=== PATIENT | male | born 1995 | race African-American/Black ===

== ENCOUNTER 2017-12-29 21:55 | Emergency (ER) | payer OTHER ==
[2017-12-29 22:05] VITALS: BP 129/96
--- NOTE | 2017-12-29 22:34 | ED Physician Documentation ---
PD HPI LOWER EXT INJURY - Stated complaint Stated Complaint: L ANKLE INJ - Chief complaint Chief Complaint: Trauma Ext - History obtained from History obtained from: Patient - History of Present Illness PD HPI LOW EXT INJURY LOCATION: Left, Ankle Type of injury: Twist Where injury occurred: Park Timing - onset: Today Timing - details: Abrupt onset Worsened by: Moving Associated symptoms: Tingling, Swelling - Additional information Additional information: Twisted playing football today, cannot walk or bear weight. Review of Systems Skin: reports: Reviewed and negative Musculoskeletal: reports: Joint swelling, Pain with weight bearing. denies: Neck pain, Back pain Neurologic: reports: Reviewed and negative PD PAST MEDICAL HISTORY - Past Medical History Past Medical History: No - Past Surgical History Past Surgical History: No - Present Medications Home Medications: Ambulatory Orders Medication Instructions Recorded Confirmed No Known Home Medications 12/29/17 12/29/17 - Allergies Allergies/Adverse Reactions: Allergies Allergy/AdvReac Type Severity Reaction Status Date / Time No Known Drug Allergies Allergy Verified 12/29/17 22:06 - Social History Does the pt smoke?: No Smoking Status: Never smoker Does the pt drink ETOH?: Yes Does the pt have substance abuse?: No - Immunizations Immunizations are current?: Yes PD ED PE NORMAL - Vitals Vital signs reviewed: Yes - General General: Alert and oriented X 3, No acute distress - Neck Neck: Supple, no meningeal sign, No bony TTP - Extremities Extremities: Other (A lot of soft tissue swelling over the lateral malleolus without too much in the way of tenderness there. No proximal fibular, talar dome, or medial malleolar tenderness or foot tenderness.) - Neuro Neuro: Alert and oriented X 3, Normal speech Results - Vitals Vitals: Vital Signs - 24 hr 12/29/17 22:03 Heart Rate 88 Respiratory 18 Rate Blood Pressure 129/96 H O2 Saturation 98 Oxygen O2 Source Room air - Rads (name of study) 3v L ankle Radiology: EMP read contemporaneously (NAD) Departure - Departure Disposition: 01 Home, Self Care Clinical Impression: Left ankle sprain Qualifiers: Encounter type: initial encounter Involved ligament of ankle: anterior talofibular ligament Qualified Code(s): S93.492A - Sprain of other ligament of left ankle, initial encounter Condition: Good Record reviewed to determine appropriate education?: Yes Instructions: ED Sprain Ankle W X Ray Comments: Follow-up with your flight surgeon towards the end of the week if not improving. Elevate as much as possible. You can walk and weight-bear weight as tolerated be use the crutches as needed. Ibuprofen as needed for pain.
--- NOTE | 2017-12-29 22:35 | XRAY Report ---
Reason: injury playinf football Procedure Date: 12/29/2017 Accession Number: [id number] / [id number] Procedure: XR - Ankle 3 View LT CPT Code: FULL RESULT: EXAM: LEFT ANKLE RADIOGRAPHY EXAM DATE: 12/29/2017 10:10 PM. CLINICAL HISTORY: Pain after injury. COMPARISON: None. TECHNIQUE: 3 views. FINDINGS: Bones: Old appearing ossicle at the tip of the medial malleolus. No acute fracture seen. Joints: No dislocation seen. Ankle mortise appears intact. No ankle joint effusion identified. Soft Tissues: Soft tissue swelling. IMPRESSION: 1. Old appearing ossicle at the tip of the medial malleolus. 2. No acute fracture or dislocation seen. [facility]
== END 2017-12-29 22:55 | disposition home or self-care (01) ==
LOC: ED 21:55
DX: S93.492A Sprain of other ligament of left ankle, initial encounter (principal); X50.1XXA Overexertion from prolonged static or awkward postures, initial encounter; Y93.61 Activity, american tackle football; Y92.830 Public park as the place of occurrence of the external cause
CPT/HCPCS: 99281; 99283